=== PATIENT | male | born 1935 | race Caucasian/White ===

== ENCOUNTER 2019-07-18 14:52 | Emergency (ER) | payer MEDICARE ==
[~2019-07-18] VITALS: Ht 172.7 cm; Wt 90.7 kg
[2019-07-18 14:59] VITALS: Ht 172.7 cm; Wt 90.7 kg
[2019-07-18 15:53] LABS: PLATELET COUNT 181 x10^3mcL (130-400); RED CELL DISTRIBUTION WIDTH 14.4 % (11.5-14.5)
[2019-07-18 16:10] LABS: BAND NEUTROPHIL 1 % (0-10); BASOPHIL 0 % (0-2); MONOCYTE 7 % (0-7); SEGMENTED NEUTROPHILS 58 % (37-75)
[2019-07-18 16:12] LABS: rbc morphology (normal/abnorm) NORMAL (NORMAL)
[2019-07-18 16:29] LABS: CALCIUM 8.9 mg/dL (8.5-10.1); CARBON DIOXIDE 29.1 mmol/L (21-32); CHLORIDE SERUM 101 mmol/L (98-107); CREATININE SERUM 1.6 mg/dL (0.7-1.3); GLUCOSE SERUM 140 mg/dL (74-106); POTASSIUM SERUM 3.8 mmol/L (3.5-5.1); SODIUM SERUM 137 mmol/L (136-145)
[2019-07-18 16:34] LABS: ALKALINE PHOSPHATASE 819 U/L (46-116); ALT/SGPT 91 U/L (16-63); AST/SGOT 272 U/L (15-37); BILIRUBIN TOTAL 1.19 mg/dL (0.20-1.00); LIPASE 161 IU/L (73-393)
[2019-07-18 16:36] LABS: ALBUMIN 2.4 g/dL (3.4-5.0); TOTAL PROTEIN, SERUM 5.4 g/dL (6.4-8.2)
[2019-07-18 16:51] LABS: UA SPECIFIC GRAVITY 1.015 (1.005-1.035); microscopic required? YES; urine erythrocyte NEGATIVE (NEGATIVE)
[2019-07-18 19:14] VITALS: BP 138/90
== END 2019-07-18 19:14 | disposition short-term general hospital (02) ==
LOC: ED 14:52
PROVIDERS: Emergency Medicine
DX: R55 Syncope and collapse (principal); I95.9 Hypotension, unspecified; R79.89 Other specified abnormal findings of blood chemistry; R74.0 Nonspecific elevation of levels of transaminase and lactic acid dehydrogenase [LDH]; I10 Essential (primary) hypertension
CPT/HCPCS: 36415; 82962; J7030; Q0092